=== PATIENT | female | born 1975 | race Caucasian/White ===

== ENCOUNTER 2024-10-12 08:21 | Outpatient (OUT) | payer MEDICAID, SELFPAY ==
[2024-10-12 09:33] LABS: Estimated Average Glucose 280 mg/dL; Glycohemoglobin A1C 11.4 % (4.5-6.2)
[2024-10-12 09:54] LABS: Free T3 3.42 pg/mL (2.18-3.98); Glucose 330 mg/dL (74-106); Thyroid Stimulating Hormone 1.098 uIU/mL (0.358-3.740)
[2024-10-12 10:51] LABS: Free T4 1.09 ng/dL (0.76-1.46)
[2024-10-13 04:08] LABS: Estradiol <5.0 pg/mL (.); Progesterone 0.1 ng/mL (.); Sex Horm Binding Glob, Serum 15.2 nmol/L (17.3-125.0)
[2024-10-13 08:09] LABS: C-Peptide, Serum 2.7 ng/mL (1.1-4.4); Insulin 12.5 uIU/mL (2.6-24.9)
[2024-10-13 16:11] LABS: Thyroglobulin Antibody <1.0 IU/mL (0.0-0.9); Thyroid Peroxidase (TPO) Ab 9 IU/mL (0-34)
[2024-10-15 12:09] LABS: Free Testosterone(Direct) 2.2 pg/mL (0.0-4.2); Testosterone 21 ng/dL (4-50)
[2024-10-15 13:10] LABS: Calcitriol(1,25 di-OH Vit D) 42.6 pg/mL (24.8-81.5)
[2024-10-15 17:08] LABS: Estrone, Serum 42 pg/mL (.)
[2024-10-16 20:09] LABS: Serotonin, Serum 95 ng/mL (31-207)
[2024-10-17 09:08] LABS: Reverse T3, Serum 19.8 ng/dL (9.2-24.1)
[2024-10-19 22:08] LABS: Cortisol, Free Dialysis, LCMS 0.538 ug/dL (.)
== END 2024-10-12 08:22 | disposition home or self-care (01) ==
LOC: LAB 08:27
PROVIDERS: PCP Family Medicine; Visit Provider Obstetrics & Gynecology
DX: E34.9 Endocrine disorder, unspecified (principal)
CPT/HCPCS: 36415; 82530; 82627; 82652; 82670; 82679; 82728; 82947; 83036; 83525; 84144; 84260; 84270; 84402; 84403; 84432; 84436; 84439; 84443; 84481; 84482; 84681; 86376; 86800

== ENCOUNTER 2024-10-28 19:48 | Outpatient (REF) | payer MEDICAID, SELFPAY ==
[2024-11-02 15:08] LABS: Age Gdln ACOG Testing Note (.); HPV Aptima Negative (Negative); IGP, Aptima HPV, rfx 16/18,45 Note (.)
== END 2024-10-28 19:49 | disposition home or self-care (01) ==
LOC: LAB 19:48
PROVIDERS: PCP Family Medicine; Visit Provider Obstetrics & Gynecology
DX: Z01.419 Encounter for gynecological examination (general) (routine) without abnormal findings (principal)
CPT/HCPCS: 87624; 88175